=== PATIENT | female | born 1930 ===

== ENCOUNTER 2017-11-18 09:35 | Day surgery (SDC) | payer MEDICARE ==
[2017-11-18] MEDS ORDERED: LIDOcaine 2% 5ml jelly ONE (10:16)
[2017-11-18] MEDS ORDERED: BUDE10.2 INH (10:58)
[2017-11-18] MEDS ORDERED: FURO80TA3 PO (10:59)
[2017-11-18] MEDS ORDERED: LOSA50TA3 PO (11:00)
[2017-11-18] MEDS ORDERED: DIGO125T PO (11:02)
[2017-11-18] MEDS ORDERED: CARV3.12 PO (11:02)
[2017-11-18] MEDS ORDERED: APIX5TAB3 PO (11:03)
[2017-11-18] MEDS ORDERED: GABA300S (11:04)
[2017-11-18] MEDS ORDERED: POTA10TA19 PO (11:04)
[2017-11-18] MEDS ORDERED: QUE9P PO (11:06)
[2017-11-18] MEDS ORDERED: HYDR-565 PO (11:06)
[2017-11-18] MEDS ORDERED: ALBU8.5H8 INH (11:06)
[2017-11-18] MEDS ORDERED: DOXY100C2 PO (15:41)
== END 2017-11-18 12:10 | disposition home or self-care (01) ==
LOC: WOUND CARE 09:35
PROVIDERS: ATTEND Surgery
DX: E11.621 Type 2 diabetes mellitus with foot ulcer (principal); L97.514 Non-pressure chronic ulcer of other part of right foot with necrosis of bone; E11.40 Type 2 diabetes mellitus with diabetic neuropathy, unspecified; E11.65 Type 2 diabetes mellitus with hyperglycemia; I87.2 Venous insufficiency (chronic) (peripheral); E11.39 Type 2 diabetes mellitus with other diabetic ophthalmic complication; H40.89 Other specified glaucoma
CPT/HCPCS: 11044; 36416; 82948; A6021; A6196; A6206; A6209; A6446; L3260

== ENCOUNTER 2017-11-25 08:46 | Day surgery (SDC) | payer MEDICARE ==
[~2017-11-25 08:46] MED LIST: ALBU8.5H8 INH; APIX5TAB3 PO; BUDE10.2 INH; CARV3.12 PO; DIGO125T PO; DOXY100C2 PO; FURO80TA3 PO; GABA300S; HYDR-565 PO; LOSA50TA3 PO; POTA10TA19 PO; QUE9P PO
[2017-11-25] MEDS ORDERED: LIDOcaine 2% 5ml jelly ONE (09:34)
[2017-11-25] MEDS ORDERED: SULF-14 PO (12:26)
== END 2017-11-25 10:45 | disposition home or self-care (01) ==
LOC: WOUND CARE 08:46
PROVIDERS: ATTEND Surgery
DX: E11.621 Type 2 diabetes mellitus with foot ulcer (principal); L97.514 Non-pressure chronic ulcer of other part of right foot with necrosis of bone; E11.40 Type 2 diabetes mellitus with diabetic neuropathy, unspecified; E11.65 Type 2 diabetes mellitus with hyperglycemia; I87.2 Venous insufficiency (chronic) (peripheral); E11.39 Type 2 diabetes mellitus with other diabetic ophthalmic complication; H40.89 Other specified glaucoma
CPT/HCPCS: 11042; 36416; 82948; A6021; A6196; A6206; A6209; A6213; A6446

== ENCOUNTER 2017-12-01 08:59 | Day surgery (SDC) | payer MEDICARE ==
[~2017-12-01 08:59] MED LIST changes: +SULF-14 PO
== END 2017-12-01 10:50 | disposition home or self-care (01) ==
LOC: WOUND CARE 08:59
PROVIDERS: ATTEND Surgery
DX: E11.621 Type 2 diabetes mellitus with foot ulcer (principal); L97.514 Non-pressure chronic ulcer of other part of right foot with necrosis of bone; E11.40 Type 2 diabetes mellitus with diabetic neuropathy, unspecified; E11.65 Type 2 diabetes mellitus with hyperglycemia; I87.2 Venous insufficiency (chronic) (peripheral); E11.39 Type 2 diabetes mellitus with other diabetic ophthalmic complication; H40.89 Other specified glaucoma
CPT/HCPCS: 11042; 36416; 82948; A6021; A6206; A6209; A6446